=== PATIENT | female | born 1975 | race Caucasian/White ===

== ENCOUNTER 2017-05-06 17:18 | Outpatient (CLI) | payer MEDICAID ==
[~2017-05-06] VITALS: Ht 157.5 cm; Wt 59.1 kg
[2017-05-06] MEDS ORDERED: LACTATED RINGER'S 1,000 ML IV SCH (17:51)
[2017-05-06 17:52] VITALS: Ht 157.5 cm; Wt 59.1 kg
[2017-05-06 17:53] VITALS: BP 126/67; PULSE 100; RESP 20
[2017-05-06 17:57] LABS: ADD SCAN DIFF NO
[2017-05-06 17:59] LABS: BASOPHIL # 0.1 10^3/ul (0.0-0.1); BASOPHILS % 0.4 % (0.0-2.0); EOSINOPHILS # 0.1 10^3/ul (0.0-0.5); EOSINOPHILS % 0.8 % (0.0-7.0); HEMATOCRIT 31.8 % (37.0-47.0); HEMOGLOBIN 10.1 g/dl (12.0-16.0); LYMPHOCYTES # 1.7 10^3/ul (0.8-2.9); MEAN CORPUSCULAR HEMOGLOBIN 25.2 pg (29.0-33.0); MEAN CORPUSCULAR HGB CONC 31.8 g/dl (32.0-37.0); MEAN CORPUSCULAR VOLUME 79.3 fl (82.0-101.0); MEAN PLATELET VOLUME 10.9 fl (7.4-10.4); MONOCYTE # 0.7 10^3/ul (0.3-0.9); MONOCYTES % 5.1 % (0.0-11.0); NEUTROPHIL # 11.4 10^3/ul (1.6-7.5); NEUTROPHILS % 80.4 % (39.0-77.0); PLATELET COUNT 289 10^3/UL (140-415); RED BLOOD COUNT 4.01 10^6/ul (4.20-5.40); RED CELL DISTRIBUTION WIDTH 13.8 % (11.5-14.5); WHITE BLOOD COUNT 14.2 10^3/ul (4.8-10.8)
[2017-05-06 18:02] LABS: ADD UMIC NO; UR ASCORBIC ACID NEGATIVE (NEGATIVE); UR BILIRUBIN (Dip) NEGATIVE (NEGATIVE); UR BLOOD (Dip) NEGATIVE (NEGATIVE); UR CLARITY CLEAR (CLEAR); UR COLOR STRAW (YELLOW); UR GLUCOSE (Dip) NEGATIVE (NEGATIVE); UR KETONES (Dip) 1+ mg/dL (NEGATIVE); UR LEUKOCYTE ESTERASE (Dip) NEGATIVE Leu/ul (NEGATIVE); UR NITRITE (Dip) NEGATIVE (NEGATIVE); UR SPECIFIC GRAVITY (Dip) 1.005 (1.003-1.030); UR TOTAL PROTEIN (Dip) NEGATIVE (NEGATIVE); UR UROBILINOGEN (Dip) NEGATIVE (NEGATIVE)
[2017-05-06 18:03] LABS: INR 0.88; PARTIAL THROMBOPLASTIN TIME 23.4 Sec (25.0-35.0); PROTIME 11.9 Sec (12.2-14.2); PT RATIO 0.9
[2017-05-06 18:09] LABS: ALBUMIN 4.3 g/dl (3.3-4.9); ALBUMIN/GLOBULIN RATIO 1.43; BILIRUBIN,INDIRECT 0.1 mg/dl (0-1.1); BILIRUBIN,TOTAL 0.1 mg/dl (0.2-1.3); CREATININE 0.4 mg/dl (0.44-1.00); POTASSIUM 3.5 mmol/L (3.5-5.1); TOTAL PROTEIN 7.3 g/dl (6.1-8.1); URIC ACID 2.4 mg/dl (3.1-7.9)
[2017-05-06] MEDS ORDERED: ONDANSETRON 4 MG INJ IV STA (18:18)
--- NOTE | 2017-05-06 18:28 | RADRPT ---
PROCEDURE: US OB biophysical profile. CLINICAL INDICATION: evaluation, elevated blood pressure TECHNIQUE: Multiple sonographic images of the pelvis were obtained. The images were reviewed on a PACS workstation. COMPARISON: No prior studies are available for comparison. FINDINGS: There is a single viable intrauterine gestation. Cardiac activity is present with 143 beats per min [place]. There is a vertex presentation. The placenta is posterior and fundal in location. There is no evidence of placental abruption. There is a normal amount of amniotic fluid with an KADIE = 11.1 cm. Biophysical profile: movement 2/2 tone 2/2. breathing 2/2 KADIE 2/2 Total 06/17 RPTAT: AA . IMPRESSION: Normal biophysical profile. Physician Gabino Date Time Electronically viewed and signed by Physician Gabino on 05/06/2017 18:28 /
[2017-05-06] MEDS ORDERED: DEXTROSE 5%-LR 1,000 ML IV SCH (18:30)
--- NOTE | 2017-05-06 18:30 | RADRPT ---
PROCEDURE: Obstetrical ultrasound CLINICAL INDICATION: HYPERTENSION TECHNIQUE: Multiple sonographic images of the pelvis were obtained. The images were reviewed on a PACS workstation. COMPARISON: None FINDINGS: The cervix is not well visualized. There is a single viable intrauterine gestation. Cardiac activity is present with 152 beats per minute. There is a vertex presentation. The placenta is posterior and fundal in location. There is no evidence for an abruption or placenta previa. There is a normal amount of amniotic fluid with an KADIE = 11.1 cm. Measurements were made in order to determine age. The results are as follows (cm): BPD =8.15 HC =28.95 AC =28.02 FL =5.69 Estimated gestational age by ultrasound of approximately 31 weeks, 4 days. The estimated date of delivery by ultrasound is 07/04/2017. Estimated gestational age by LMP of approximately 30 weeks, 4 days. The estimated date of delivery by LMP is 07/11/2017. EFW = 1767 grams (68th percentile) IMPRESSION: Single viable intrauterine gestation of approximately 31 weeks, 4 days . The estimated date of delivery is 07/04/2017 . Dating by ultrasound is within 1 week of dating by LMP. Cephalic presentation. Normal KADIE. Posterior and fundal placenta without evidence of an abruption. RPTAT: EE Physician Gabino Date Time Electronically viewed and signed by Physician Gabino on 05/06/2017 18:29 /
[2017-05-06] MEDS ORDERED: PRENAT PO (18:53)
[2017-05-06] MEDS ORDERED: FERR325C PO (18:53)
--- NOTE | 2017-05-06 19:02 | CONS ---
Date/Time of Note Date/Time of Note DATE: 05/06/17 TIME: 18:53 Consultation Date/Type/Reason Admit Date/Time May 06, 2017 OB triage consult Reason for Consultation This patient is a 42 years old 5 para 4 with estimated date of confinement of July 17, 2017 which makes her 29 weeks and 5 days now She came to triage complaining of occasional blurred vision ,apparently to rule out -induced hypertension, she also is complaining of some discomfort ,constipation and abdominal pain , most likely due the iron pills that she is taking 3 times a day to treat anemia ; Her H & was adherently low . Blood type O Rh+ hepatitis B surface antigen negative HIV negative RPR negative and she is immune to rubella, chlamydia and gonorrhea both negative On general examination she is well-developed well-nourished lady . Her general vital signs basically appears to be normal Her blood pressure is 126/67, pulse rate 100, respiration 18 temperature 98,, At this time she does not have any contraction heart tone appears to be normal with good variability Laboratory Tests Test 05/06/17 17:10 White Blood Count 14.210^3/ul Red Blood Count 4.0110^6/ul Hemoglobin 10.1g/dl Hematocrit 31.8% Mean Corpuscular Volume 79.3fl Mean Corpuscular Hemoglobin 25.2pg Mean Corpuscular Hemoglobin Concent 31.8g/dl Red Cell Distribution Width 13.8% Platelet Count 34312^3/UL Mean Platelet Volume 10.9fl Neutrophils % 80.4% Lymphocytes % 12.0% Monocytes % 5.1% Eosinophils % 0.8% Basophils % 0.4% Nucleated Red Blood Cells % 0.0/100WBC Neutrophils # 11.410^3/ul Lymphocytes # 1.710^3/ul Monocytes # 0.710^3/ul Eosinophils # 0.110^3/ul Basophils # 0.110^3/ul Nucleated Red Blood Cells # 0.010^3/ul Prothrombin Time 11.9Sec Prothrombin Time Ratio 0.9 INR International Normalized Ratio 0.88 Activated Partial Thromboplast Time 23.4Sec Fibrinogen 533.0mg/dl Urine Color STRAW Urine Clarity CLEAR Urine pH 6.0 Urine Specific [place] 1.005 Urine Ketones 1+mg/dL Urine Nitrite NEGATIVEmg/dL Urine Bilirubin NEGATIVEmg/dL Urine Urobilinogen NEGATIVEmg/dL Urine Leukocyte Esterase NEGATIVELeu/ul Urine Hemoglobin NEGATIVEmg/dL Urine Glucose NEGATIVEmg/dL Urine Total Protein NEGATIVEmg/dl Sodium Level 136mmol/L Potassium Level 3.5mmol/L Chloride Level 106mmol/L Carbon Dioxide Level 23mmol/L Anion Gap 11 Blood Urea Nitrogen 4mg/dl Creatinine 0.40mg/dl Glucose Level 82mg/dl Uric Acid 2.4mg/dl Calcium Level 9.0mg/dl Total Bilirubin 0.1mg/dl Direct Bilirubin 0.00mg/dl Indirect Bilirubin 0.1mg/dl Aspartate Amino Transf (AST/SGOT) 47IU/L Alanine Aminotransferase (ALT/SGPT) 62IU/L Alkaline Phosphatase 115IU/L Total Protein 7.3g/dl Albumin 4.3g/dl Globulin 3.00g/dl Albumin/Globulin Ratio 1.43 Current Medications Medications (Trade) Dose Ordered Sig/Foster Route PRN Reason Start Time Stop Time Status Last Admin Dose Admin Lactated Ringer's 1,000 ml @ 125 mls/hr Q8H IV 05/06/17 17:51 05/06/17 18:26 125 MLS/HR Dextrose/Lactated Ringer's (D5-Lr) 1,000 ml @ 125 mls/hr Q8H IV 05/06/17 18:30 05/06/17 18:26 125 MLS/HR Ondansetron HCl (Zofran Inj) 4 mg ONCE STAT IV 05/06/17 18:18 05/06/17 18:21 DC 05/06/17 18:26 4 MG Constitutional: No chills, No diaphoresis, No disoriented, No febrile, No improved, No no complaints, No other, No poor po, No requiring IVF, No requiring O2 Eyes: No discharge, No no complaints, No other, No pain, No redness, No visual change ENT: No bleeding, No congestion, No discharge, No dysphagia, No no complaints, No other, No pain, No sore throat Respiratory: No cough, No no complaints, No other, No pain, No pleuritic pain, No shortness of breath, No sputum, No wheezing Cardiovascular: other (No palpitation), paroxysmal nocturnal dyspnea Gastrointestinal: No blood, No constipation, No decreased appetite, No diarrhea , No flatus, No nausea, No no complaints, No other, No pain, No passing stool, No vomiting Genitourinary: other (Due to lack of contraction and pelvic exam was not done) , No bleeding, No discharge, No dysuria, No flank pain, No hematuria, No no complaints Musculoskeletal: No back pain, No bone/joint pain, No neck pain, No no complaints, No other, No restricted range of motion, No swelling Skin: No bruising, No erythema, No laceration, No no complaints, No other, No pruritis, No rash, No skin lesions Neurologic: No confusion, No dizziness, No focal-weakness, No headache, No no complaints, No other, No seizure, No syncope Endocrine: other (Knee-jerk reflex are within normal limits) Lymphatic: No adenopathy, No lymphadema, No no complaints, No other, No tender nodes Psychological: No anxiety, No confusion, No depression, No nl mood/affect, No no complaints, No other, No suicidal Additional Comments On laboratory study her WBC is 14.2 hemoglobin 10.1 hematocrit 31.8 platelet count 289 basically the rest of the exam were also within normal limits. PIH examination were all normal including the liver function test electrolytes and coagulation studies On ultrasound study the report is single viable intrauterine gestation with a heartbeat of 1 43/min vertex presentation no evidence of placenta previa her amniotic fluid index reported 11.1 Biophysical profile 06/17 ,estimated weight 1767 which is 68th percentile With these positive finding patient was reassured and will be discharged home with instruction to rest at home and may reduce your oral iron tablet to 1 or 2 a day as a result she will have less of a problem of abdominal pain and constipation Both her and understand this and will follow this instruction and will be followed in the clinic end of dictation thank you Social History Smoking Status: Never smoker Exam/Review of Systems Vital Signs Vitals Vital Signs Date Time Temp Pulse Resp B/P Pulse Ox O2 Delivery O2 Flow Rate FiO2 05/06/17 17:53 98.0 100 20 126/67 95 Room Air Results Result Diagram: 05/06/17 1710 05/06/17 1710 Results 24 hrs Laboratory Tests Test 05/06/17 17:10 White Blood Count 14.2 H Red Blood Count 4.01 L Hemoglobin 10.1 L Hematocrit 31.8 L Mean Corpuscular Volume 79.3 L Mean Corpuscular Hemoglobin 25.2 L Mean Corpuscular Hemoglobin Concent 31.8 L Red Cell Distribution Width 13.8 Platelet Count 289 Mean Platelet Volume 10.9 H Neutrophils % 80.4 H Lymphocytes % 12.0 L Monocytes % 5.1 Eosinophils % 0.8 Basophils % 0.4 Nucleated Red Blood Cells % 0.0 Neutrophils # 11.4 H Lymphocytes # 1.7 Monocytes # 0.7 Eosinophils # 0.1 Basophils # 0.1 Nucleated Red Blood Cells # 0.0 Prothrombin Time 11.9 L Prothrombin Time Ratio 0.9 INR International Normalized Ratio 0.88 Activated Partial Thromboplast Time 23.4 L Fibrinogen 533.0 H Urine Color STRAW Urine Clarity CLEAR Urine pH 6.0 Urine Specific [place] 1.005 Urine Ketones 1+ H Urine Nitrite NEGATIVE Urine Bilirubin NEGATIVE Urine Urobilinogen NEGATIVE Urine Leukocyte Esterase NEGATIVE Urine Hemoglobin NEGATIVE Urine Glucose NEGATIVE Urine Total Protein NEGATIVE Sodium Level 136 Potassium Level 3.5 Chloride Level 106 Carbon Dioxide Level 23 Anion Gap 11 Blood Urea Nitrogen 4 L Creatinine 0.40 L Glucose Level 82 Uric Acid 2.4 L Calcium Level 9.0 Total Bilirubin 0.1 L Direct Bilirubin 0.00 Indirect Bilirubin 0.1 Aspartate Amino Transf (AST/SGOT) 47 H Alanine Aminotransferase (ALT/SGPT) 62 Alkaline Phosphatase 115 Total Protein 7.3 Albumin 4.3 Globulin 3.00 Albumin/Globulin Ratio 1.43 Medications Medications Current Medications Lactated Ringer's 1,000 ml @ 125 mls/hr Q8H IV Last administered on 05/06/17 18:26; Admin Dose 125 MLS/HR; Start 05/06/17 at 17:51 Dextrose/Lactated Ringer's (D5-Lr) 1,000 ml @ 125 mls/hr Q8H IV Last administered on 05/06/17 18:26; Admin Dose 125 MLS/HR; Start 05/06/17 at 18:30 KRISTIN WILLIAMSON MD May 06, 2017 19:02
--- NOTE | 2017-05-06 19:53 | TRIAGE ---
OB Triage Datetime Report Generated by CPN: 05/06/2017 19:53 Datetime: 05/06/2017 18:47 Stage of : OB Triage Labor Evaluation Frequency: 0 Monitor Mode: External Duration (sec)2399: 0 Resting Tone [place]: Relaxed Contraction Comments: PT DENIES UCS Heart Rate FHR Baseline Rate: 145 Variability: Moderate 6-25 bpm Accelerations: 15X15 Decelerations: None Category: Category I Pain Assessment Pain Scale: 0 Pain Presence: None/Denies Pain Type: N/A Pain Goal: 0 Pain Relief Measures: Comfort Measures Pain Assessment Comments: PT STATES HER DIZZINESS, AND MILLER IS RESOLVED AND SHE IS FEELING MUCH BETT ER Datetime: 05/06/2017 18:06 Time of Arrival: 05/06/2017 17:10 EGA: 29.5 Arrived By: Ambulatory Arrived From: Dr. Abraham Chief Complaint: R/O PIH, N/V Movement: Present Contractions: Denies/Absent Rupture of Membranes: Denies Vaginal Bleeding: None Vaginal Discharge: Denies Recent Sexual Intercouse: Denies Abdominal Trauma: Not Applicable Time Provider Notified: 05/06/2017 18:17 Provider Notified: DR. BRISCOE Initial Plan: bpp, nst, iv hydration Datetime: 05/06/2017 18:00 Assessment Type: Triage Maternal Assessment Level of Consciousness: Fully Conscious DTR's/Clonus: DTRs 2+; No Clonus Headache: Denies Blurred Vision: No Respiratory Effort: Unlabored; Regular Rhythm; Equal Expansion Breath Sounds, Left: Clear and Equal Breath Sounds, Right: Clear and Equal Nausea/Vomiting: Denies RUQ Epigastric Pain: Denies Lower Extremities Edema: None Degree: None Upper Extremities Edema: None Degree: None Facial Edema: None Fall Risk Assessment History of Falling: (0) No Secondary Diagnosis: (0) No Ambulatory Aid: (0) Bedrest/Nurse Assist IV Therapy: (0) No Gait: (0) Normal/Bedrest/Immobile Mental Status: (0) Oriented to Own Ability Fall Score: 0 Fall Risk Score Definition: No Risk: No action required Datetime: 05/06/2017 17:48 Labor Evaluation Frequency: IRREG Monitor Mode: External Duration (sec)2399: 30-50 Quality: Mild Pattern: Normal: <= 5 Contractions in 10 Minutes Resting Tone [place]: Relaxed Heart Rate FHR Baseline Rate: 150 Monitor Mode: External US Variability: Moderate 6-25 bpm Accelerations: 15X15 Decelerations: None Category: Category I Comments: NST REACTIVE FOR GESTATIONAL AGE
== END 2017-05-06 19:02 | disposition home or self-care (01) ==
LOC: OBT 17:18 → L-D 17:18 → OBT 19:02
PROVIDERS: ATTEND Obstetrics & Gynecology
DX: O26.893 Other specified pregnancy related conditions, third trimester (principal); Z3A.29 29 weeks gestation of pregnancy; H53.8 Other visual disturbances; K59.00 Constipation, unspecified; R10.9 Unspecified abdominal pain
CPT/HCPCS: 36415; 76815; 76818; 80053; 81003; 84560; 85025; 85384; 85610; 85730; J2405; J7120; J7121; Z7500; G0463

== ENCOUNTER 2017-06-25 22:53 | Outpatient (CLI) | payer MEDICAID ==
[~2017-06-25] VITALS: Ht 157.5 cm; Wt 63.9 kg
[~2017-06-25 22:53] MED LIST: FERR325C PO; PRENAT PO
[2017-06-26 00:05] VITALS: BP 115/73; PULSE 98; RESP 18; Ht 157.5 cm; Wt 63.9 kg
--- NOTE | 2017-06-26 02:51 | PN ---
Triage Information Date/Time June 26, 2017 Reason for visit: SROM Weeks of Gestation 38 weeks and 5 days /Para 6 para 4 Diabetes: none Hypertention: none Additional information 42-year-old with IUP at 38 weeks and 5 days with improvement care with Dr. Benavides presented with complaint of leaking of fluid. Denies any vaginal bleeding or uterine contractions or decreased movement. Objective Vital Signs Date Time Temp Pulse Resp B/P Pulse Ox O2 Delivery O2 Flow Rate FiO2 06/26/17 00:05 98.1 98 18 115/73 Heart Rate Comments Category 1 tracing Contractions: >10 Minutes Apart Exam General appearance: Alert and oriented 4. Patient does not appear to be in any acute distress. Abdomen: Soft, gravid, fundal height consistent with gestational age. Abdomen nontender no rebound tenderness no guarding Sterile speculum examination: Negative pooling, negative nitrazine, R OM test negative Cervix appears to be closed and long NST category 1 Results/Medications Results 24 hrs Laboratory Tests Test 06/26/17 00:25 Membranes Rupture NEGATIVE Imaging Results PROCEDURE: US OB biophysical profile. CLINICAL INDICATION: evaluation, elevated blood pressure TECHNIQUE: Multiple sonographic images of the pelvis were obtained. The images were reviewed on a PACS workstation. COMPARISON: No prior studies are available for comparison. FINDINGS: There is a single viable intrauterine gestation. Cardiac activity is present with 143 beats per minute. There is a vertex presentation. The placenta is posterior and fundal in location. There is no evidence of placental abruption. There is a normal amount of amniotic fluid with an KADIE = 11.1 cm. Biophysical profile: movement 2/2 tone 2/2. breathing 2/2 KADIE 2/2 Total 06/17 RPTAT: AA . IMPRESSION: Normal biophysical profile. Disposition: Discharge Assessment/Plan IUP at 38 weeks and 5 days No evidence of SROM No evidence of labor Normal amniotic fluid Likely leaking urine Patient was reassured DC home Strict labor precaution and kick count and follow-up within 24-48 hours with her OB clinic recommended. Patient verbalized understanding. SHY BUTTS MD Jun 26, 2017 02:51
--- NOTE | 2017-06-26 10:03 | RADRPT ---
PROCEDURE: Limited OB ultrasound. CLINICAL INDICATION: Leaking fluid. TECHNIQUE: Sonographic evaluation to assess the amniotic fluid volume was performed. Transabdomin al imaging of the gravid uterus was performed. COMPARISON: None. FINDINGS: Single live intrauterine is identified. heart rate is 122 beats per minute. Placenta is fundal, grade II in appearance. There is no evidence of placenta previa or abruption. Pr esentation is cephalic. Amniotic fluid index is 15.1 cm, within normal limits. IMPRESSION: KADIE = 15.1 cm RPTAT: HIKT .Jay Jay Parker MD, Date Time Electronically viewed and signed by .Jay Jay Parker MD, on 06/26/2017 01:15 .T/
--- NOTE | 2017-06-26 10:38 | TRIAGE ---
OB Triage Datetime Report Generated by CPN: 06/26/2017 06:58 Datetime: 06/26/2017 23:10 Maternal Assessment Blurred Vision: No Respiratory Effort: Unlabored; Regular Rhythm; Equal Expansion Lower Extremities Edema: None Degree: None Upper Extremities Edema: None Degree: None Facial Edema: None Fall Risk Assessment History of Falling: (0) No Secondary Diagnosis: (0) No Ambulatory Aid: (0) Bedrest/Nurse Assist IV Therapy: (0) No Gait: (0) Normal/Bedrest/Immobile Mental Status: (0) Oriented to Own Ability Fall Score: 0 Fall Risk Score Definition: No Risk: No action required Datetime: 06/26/2017 01:55 Stage of : OB Triage Datetime: 06/26/2017 01:30 Stage of : OB Triage Datetime: 06/26/2017 01:29 Stage of : OB Triage Labor Evaluation Frequency: occasional Monitor Mode: External Pattern: Normal: <= 5 Contractions in 10 Minutes Resting Tone [place]: Relaxed Heart Rate FHR Baseline Rate: 125 Monitor Mode: External US Variability: Moderate 6-25 bpm Accelerations: 15X15 Decelerations: None Category: Category I Pain Assessment Pain Scale: 0 Pain Presence: None/Denies Pain Type: N/A Pain Relief Measures: Comfort Measures Datetime: 06/26/2017 00:30 Stage of : OB Triage Labor Evaluation Frequency: occasionally Monitor Mode: External Pattern: Normal: <= 5 Contractions in 10 Minutes Resting Tone [place]: Relaxed Heart Rate FHR Baseline Rate: 140 Monitor Mode: External US Variability: Moderate 6-25 bpm Accelerations: 15X15 Decelerations: None Category: Category I Datetime: 06/25/2017 23:46 Stage of : Labor Vaginal Exam Dilatation (cms): 1.0 Effacement (%): 50 Station: -3 Exam By: Marley Vaginal Bleeding: None Cervix, Consistency: Soft Datetime: 06/25/2017 23:30 Stage of : OB Triage Labor Evaluation Frequency: x2 Monitor Mode: External Duration (sec)2399: 60-70 Pattern: Normal: <= 5 Contractions in 10 Minutes Resting Tone [place]: Relaxed Heart Rate FHR Baseline Rate: 140 Monitor Mode: External US Variability: Moderate 6-25 bpm Accelerations: 15X15 Decelerations: None Category: Category I Datetime: 06/25/2017 23:04 Time of Arrival: 06/25/2017 22:49 EGA: 38.5 Arrived By: Ambulatory Arrived From: Home Movement: Present Contractions: Denies/Absent Rupture of Membranes: Unsure Vaginal Bleeding: None Vaginal Discharge: Present Abdominal Trauma: Not Applicable Patient Complaints: None Additional Patient Complaints: LEAKING Time Provider Notified: 06/26/2017 00:10 Provider Notified: Jamardasuresh Initial Plan: VS, EFM, NOTIFY MD Datetime: 05/06/2017 18:06 EGA: 31.4 Patient Complaints: Cramping; Headache; Visual Disturbance; Nausea; Vomiting Datetime: 05/06/2017 18:00 Fall Score: 0 Fall Risk Score Definition: No Risk: No action required
== END 2017-06-26 02:05 | disposition home or self-care (01) ==
LOC: OBT 22:53 → L-D 22:56 → OBT 06-26 02:05
PROVIDERS: ATTEND Obstetrics & Gynecology
DX: O41.93X0 Disorder of amniotic fluid and membranes, unspecified, third trimester, not applicable or unspecified (principal); Z3A.38 38 weeks gestation of pregnancy; O42.92 Full-term premature rupture of membranes, unspecified as to length of time between rupture and onset of labor
CPT/HCPCS: 76815; 84112; Z7500; G0463

== ENCOUNTER 2017-07-02 22:04 | Outpatient (CLI) | payer MEDICAID ==
[~2017-07-02] VITALS: Ht 158.8 cm; Wt 65.6 kg
[2017-07-02 23:11] VITALS: BP 115/72; PULSE 90; RESP 18
[2017-07-03 00:11] LABS: ADD UMIC YES; UR ASCORBIC ACID NEGATIVE (NEGATIVE); UR BACTERIA FEW /HPF (NONE SEEN); UR BILIRUBIN (Dip) NEGATIVE (NEGATIVE); UR BLOOD (Dip) NEGATIVE (NEGATIVE); UR CLARITY CLEAR (CLEAR); UR COLOR YELLOW (YELLOW); UR GLUCOSE (Dip) NEGATIVE (NEGATIVE); UR KETONES (Dip) TRACE mg/dL (NEGATIVE); UR LEUKOCYTE ESTERASE (Dip) 1+ Leu/ul (NEGATIVE); UR NITRITE (Dip) NEGATIVE (NEGATIVE); UR RBC 1 /HPF (0-5); UR SPECIFIC GRAVITY (Dip) 1.009 (1.003-1.030); UR SQUAMOUS EPITHELIAL CELL FEW /HPF (FEW); UR TOTAL PROTEIN (Dip) NEGATIVE (NEGATIVE); UR UROBILINOGEN (Dip) NEGATIVE (NEGATIVE)
--- NOTE | 2017-07-03 00:24 | RADRPT ---
PROCEDURE: OB ultrasound for biophysical profile CLINICAL INDICATION: 42 years of age, female. Decreased movements TECHNIQUE: Multiple sonographic images of the pelvis were obtained. Transabdominal view of the gr avid uterus are available for review. The images were reviewed on a PACS workstation. COMPARISON: None available. FINDINGS: breathing movement = 2/2 tone = 2/2 motion = 2/2 Amniotic fluid = 2/2 KADIE = 13.7 cm Single live intrauterine in cephalic presentation. heart rate measures 150 bpm. Fundal placenta, grade 2. There are multiple echogenic cystic lesions in the placenta. Placenta janie sures 4.3 cm in thickness. IMPRESSION: 1. Single living fetus in cephalic presentation. 2. Biophysical profile = 8/8. 3. Normal amniotic fluid volume. KADIE = 13.7 cm. 4. Mature grade 2 placenta with multiple echogenic cystic lesions that may be seen with ischemic pl acental disease. RPTAT: HCTS Physician Shahida Date Time Electronically viewed and signed by Physician Shahida on 07/03/2017 00:24 CS/
--- NOTE | 2017-07-03 00:26 | RADRPT ---
PROCEDURE: ULTRASOUND OF THE BILATERAL LOWER EXTREMITY VENOUS SYSTEMS WITH DOPPLER CLINICAL INDICATION: 42 years of age, female. Pain and swelling . COMPARISON: None available. TECHNIQUE: Real-time longitudinal and transverse sonographic humphries scale imaging with and without com pression, as well as color and duplex Doppler imaging before and after augmentation, was obtained of the deep system of the bilateral lower extremities, including the common femoral, femoral, poplitea l, posterior tibial, and peroneal veins. FINDINGS: Right common femoral vein: No evidence of thrombus. Right femoral vein: No evidence of thrombus. Right popliteal vein: No evidence of thrombus. Right calf veins: Patent where visualized. Left common femoral vein: No evidence of thrombus. Left femoral vein: No evidence of thrombus. Left popliteal vein: No evidence of thrombus. Left calf veins: Patent where visualized. Additional comment: None. IMPRESSION: Negative for ultrasound evidence of deep venous thrombosis in the right or left lower extremity. RPTAT: HCTS Physician Shahida Date Time Electronically viewed and signed by Physician Shahida on 07/03/2017 00:25 /
--- NOTE | 2017-07-03 05:34 | PN ---
Triage Information Date/Time July 02, 2017 Reason for visit: Both leg swelling more in the right side. Decreased movement as well. Weeks of Gestation 37 weeks and 6 days /Para 6 para Diabetes: none Hypertention: none Additional information 42-year-old with IUP at 37 weeks and 6 days with complaint of both lower extremity swelling more in the right and left. Denies any vaginal bleeding, uterine contractions. Complaint of decreased movement as well. Objective Vital Signs Date Time Temp Pulse Resp B/P Pulse Ox O2 Delivery O2 Flow Rate FiO2 07/02/17 23:11 98.4 90 18 115/72 Room Air Heart Rate: 130's Contractions: >10 Minutes Apart Exam General appearance: Alert and oriented 4. Patient does not appear to be in any acute distress. Abdomen: Soft, gravid, fundal height consistent with gestational age. Extremities: Calf tenderness in the right side. No cords palpable, 2+ edema nonpitting in the right side. 1+ edema nonpitting the left side. No calf tenderness in the left side. No cords palpable in any site. Negative Homans sign in both sides. NST: Category 1 BPP: 06/17 Results/Medications Results 24 hrs Laboratory Tests Test 07/02/17 23:00 Urine Color YELLOW Urine Clarity CLEAR Urine pH 6.0 Urine Specific [place] 1.009 Urine Ketones TRACE A Urine Nitrite NEGATIVE Urine Bilirubin NEGATIVE Urine Urobilinogen NEGATIVE Urine Leukocyte Esterase 1+ H Urine Microscopic RBC 1 Urine Microscopic WBC 3 Urine Squamous Epithelial Cells FEW Urine Bacteria FEW A Urine Hemoglobin NEGATIVE Urine Glucose NEGATIVE Urine Total Protein NEGATIVE Imaging Results PROCEDURE: ULTRASOUND OF THE BILATERAL LOWER EXTREMITY VENOUS SYSTEMS WITH DOPPLER CLINICAL INDICATION: 42 years of age, female. Pain and swelling . COMPARISON: None available. TECHNIQUE: Real-time longitudinal and transverse sonographic humphries scale imaging with and without compression, as well as color and duplex Doppler imaging before and after augmentation, was obtained of the deep system of the bilateral lower extremities, including the common femoral, femoral, popliteal, posterior tibial, and peroneal veins. FINDINGS: Right common femoral vein: No evidence of thrombus. Right femoral vein: No evidence of thrombus. Right popliteal vein: No evidence of thrombus. Right calf veins: Patent where visualized. Left common femoral vein: No evidence of thrombus. Left femoral vein: No evidence of thrombus. Left popliteal vein: No evidence of thrombus. Left calf veins: Patent where visualized. Additional comment: None. IMPRESSION: Negative for ultrasound evidence of deep venous thrombosis in the right or left lower extremity. Disposition: Discharge Assessment/Plan IUP at 37 weeks and 6 days Swelling of Both lower extremity. no evidence of DVT in ultrasound Incidental finding of multiple cystic area in the placenta. ? for placental infarction. BPP reassuring and NST DC home Follow up tomorrow to Triage for possible admission for induction after consultation with perinatologist CAITLIN Crane was notified to contact the patient to come tomorrow for possible induction Labor precaution and kick counts discussed Patient verbalized understanding SHY BUTTS MD Jul 03, 2017 05:26
--- NOTE | 2017-07-03 07:34 | TRIAGE ---
OB Triage Datetime Report Generated by CPN: 07/03/2017 07:34 Datetime: 07/03/2017 01:28 Stage of : OB Triage Labor Evaluation Frequency: IRREG Monitor Mode: External Duration (sec)2399: 40-80 Quality: Mild Pattern: Normal: <= 5 Contractions in 10 Minutes Resting Tone [place]: Relaxed Heart Rate FHR Baseline Rate: 145 Monitor Mode: External US Variability: Moderate 6-25 bpm Accelerations: 15X15 Decelerations: Variable Category: Category II Datetime: 07/03/2017 01:27 Stage of : OB Triage Datetime: 07/03/2017 00:50 Stage of : OB Triage Labor Evaluation Frequency: IRREG Monitor Mode: External Duration (sec)2399: 40-80 Quality: Mild Pattern: Normal: <= 5 Contractions in 10 Minutes Resting Tone [place]: Relaxed Heart Rate FHR Baseline Rate: 145 Monitor Mode: External US Variability: Moderate 6-25 bpm Accelerations: 15X15 Decelerations: Variable (Annotations: MILD) Category: Category I Datetime: 07/03/2017 00:05 Stage of : OB Triage Pattern: Normal: <= 5 Contractions in 10 Minutes Resting Tone [place]: Relaxed Heart Rate FHR Baseline Rate: 150 Monitor Mode: External US FHR Baseline Changes: No Baseline Change Variability: Moderate 6-25 bpm Accelerations: 15X15 Decelerations: Variable Category: Category II Datetime: 07/03/2017 00:00 Stage of : OB Triage Labor Evaluation Frequency: IRREG Monitor Mode: External Duration (sec)2399: 40-80 Quality: Mild Pattern: Normal: <= 5 Contractions in 10 Minutes Resting Tone [place]: Relaxed Heart Rate FHR Baseline Rate: 140 Monitor Mode: External US Variability: Moderate 6-25 bpm Accelerations: 15X15 Decelerations: None Category: Category I Datetime: 07/02/2017 23:00 Stage of : OB Triage Temperature Route: Oral Labor Evaluation Frequency: X1 Monitor Mode: External Duration (sec)2399: 80 Quality: Mild Pattern: Normal: <= 5 Contractions in 10 Minutes Resting Tone [place]: Relaxed Heart Rate FHR Baseline Rate: 150 Monitor Mode: External US Variability: Moderate 6-25 bpm Accelerations: 15X15 Decelerations: Variable (Annotations: MILD) Category: Category II Datetime: 07/02/2017 22:30 Time of Arrival: 07/02/2017 21:52 EGA: 37.6 Arrived By: Ambulatory Arrived From: Home Chief Complaint: sent from clinic d/t pedal edema and inc edema and pain rt leg Movement: Decreased Contractions: Irregular Rupture of Membranes: Denies Vaginal Bleeding: None Vaginal Discharge: Denies Recent Sexual Intercouse: Denies Abdominal Trauma: Not Applicable Patient Complaints: Cramping; Dependent Edema Time Provider Notified: 07/02/2017 22:55 Provider Notified: Dr Espino Initial Plan: EFM, SVE, BPP, venous doppler taylor lower ext Datetime: 07/02/2017 22:29 Stage of : OB Triage Maternal Assessment Level of Consciousness: Fully Conscious DTR's/Clonus: DTRs 2+; No Clonus Headache: Denies Blurred Vision: No Respiratory Effort: Unlabored Nausea/Vomiting: Denies RUQ Epigastric Pain: Denies Facial Edema: None Labor Evaluation Frequency: placed Monitor Mode: External Resting Tone [place]: Relaxed Heart Rate FHR Baseline Rate: 150 Monitor Mode: External US Pain Assessment Pain Scale: 8 Pain Presence: Constant Pain Type: Pressure Pain Location: Right Leg; Right Ankle Datetime: 06/26/2017 23:10 Fall Risk Assessment Fall Score: 0 Fall Risk Score Definition: No Risk: No action required Datetime: 06/25/2017 23:04 EGA: 36.6 Datetime: 05/06/2017 18:06 EGA: 29.5 Datetime: 05/06/2017 18:00 Fall Risk Assessment Fall Score: 0 Fall Risk Score Definition: No Risk: No action required
== END 2017-07-03 00:38 | disposition home or self-care (01) ==
LOC: OBT 22:04 → L-D 22:04 → OBT 07-03 00:38
PROVIDERS: ATTEND Obstetrics & Gynecology
DX: O36.8130 Decreased fetal movements, third trimester, not applicable or unspecified (principal); O26.893 Other specified pregnancy related conditions, third trimester; R22.43 Localized swelling, mass and lump, lower limb, bilateral; Z3A.37 37 weeks gestation of pregnancy
CPT/HCPCS: 76818; 81001; 93970; Z7500; G0463

== ENCOUNTER 2017-07-03 11:46 | Outpatient (CLI) | payer MEDICAID ==
[~2017-07-03] VITALS: Ht 160 cm; Wt 65.6 kg
[2017-07-03 11:50] VITALS: Ht 160 cm; Wt 65.6 kg
[2017-07-03 11:51] VITALS: BP 110/70
--- NOTE | 2017-07-03 13:53 | RADRPT ---
AMENDMENT: 07/03/2017 3:29:38 PM Manoj Hou MD CORRECTION: The estimated weight is 3584 g which is in the 65th percentile. PROCEDURE: Obstetrical ultrasound CLINICAL INDICATION: Intrauterine growth retardation TECHNIQUE: Multiple sonographic images of the pelvis were obtained. The images were reviewed on a PACS workstation. COMPARISON: None FINDINGS: The cervix is not well visualized. There is a single viable intrauterine gestation. Cardiac activity is present with 129 beats per minute. There is a vertex presentation. The placenta is fundal. There is no evidence for an abruption or placenta previa. There is a subjectively normal amount of amniotic fluid. Measurements were made in order to determine age. The results are as follows (cm): BPD =9.34 HC =33.86 AC =35.55 FL =7.29 Estimated gestational age by ultrasound of approximately 38 weeks, 3 days. The estimated date of delivery by ultrasound is 07/14/2017. Estimated gestational age by LMP of approximately 38 weeks, 6 days. The estimated date of delivery by LMP is 07/11/2017. EFW = 1584 grams (65th percentile) IMPRESSION: Single viable intrauterine gestation of approximately 38 weeks, 3 days . The estimated date of delivery is 07/14/2017 . Dating by ultrasound is within 3 days of dating by LMP. Cephalic presentation. Estimated weight is 1584 g which is in the 65th percentile. RPTAT: EE Physician Gabino Date Time Electronically viewed and signed by Physician Gabino on 07/03/2017 15:29 /
--- NOTE | 2017-07-03 15:16 | PN ---
Triage Information Date/Time 07/03/2017 Reason for visit: called in for palcental conditions at 38 weeks Weeks of Gestation 38 /Para G6 P 4 Diabetes: none Hypertention: none Additional information seen in Ob Triage night before: notice to have placental condition: Perinatologist read U/S as placental lakes : and recommends delivery at 39 weeks and biweekly NST and BPP Objective Vital Signs Date Time Temp Pulse Resp B/P Pulse Ox O2 Delivery O2 Flow Rate FiO2 07/03/17 11:51 98.0 110/70 Heart Rate: 140's Heart Rate Comments reactive Contractions: None Exam no applicable Results/Medications Imaging Results EFW = 3584 grams (65th percentile) IMPRESSION: Single viable intrauterine gestation of approximately 38 weeks, 3 days . The estimated date of delivery is 07/14/2017 . Dating by ultrasound is within 3 days of dating by LMP. Disposition: Discharge Assessment/Plan placental lakes will follow by antepartum testing and in clinic AMY LEACH MD Jul 03, 2017 15:16
--- NOTE | 2017-07-03 15:34 | TRIAGE ---
OB Triage Datetime Report Generated by CPN: 07/03/2017 15:34 Datetime: 07/03/2017 11:55 Stage of : OB Triage Assessment Type: Triage Level of Consciousness: Fully Conscious DTR's/Clonus: DTRs 2+; No Clonus Headache: Denies Blurred Vision: No Respiratory Effort: Unlabored; Regular Rhythm; Equal Expansion Breath Sounds, Left: Clear and Equal Breath Sounds, Right: Clear and Equal Nausea/Vomiting: Denies RUQ Epigastric Pain: Denies Lower Extremities Edema: Bilateral Lower Extremities Degree: Pitting Upper Extremities Edema: None Degree: None Facial Edema: None Temperature Route: Oral History of Falling: (0) No Secondary Diagnosis: (0) No Ambulatory Aid: (0) Bedrest/Nurse Assist IV Therapy: (0) No Gait: (0) Normal/Bedrest/Immobile Mental Status: (0) Oriented to Own Ability Fall Score: 0 Fall Risk Score Definition: No Risk: No action required Monitor Mode: External Resting Tone [place]: Relaxed FHR Baseline Rate: 130 Monitor Mode: External US Variability: Moderate 6-25 bpm Accelerations: 15X15 Decelerations: None Category: Category I Pain Scale: 0 Pain Presence: None/Denies Pain Type: N/A Datetime: 07/03/2017 11:54 Time of Arrival: 07/03/2017 11:41 EGA: 38.0 Arrived By: Ambulatory Arrived From: Home Time Provider Notified: 07/03/2017 15:17 Provider Notified: DR. BRISCOE
== END 2017-07-03 15:38 | disposition home or self-care (01) ==
LOC: L-D 11:46 → OBT 11:46 → L-D 11:49 → OBT 15:38
PROVIDERS: ATTEND Obstetrics & Gynecology
DX: O36.5930 Maternal care for other known or suspected poor fetal growth, third trimester, not applicable or unspecified (principal); Z3A.38 38 weeks gestation of pregnancy
CPT/HCPCS: 76815

== ENCOUNTER 2017-07-09 14:38 | Inpatient (IN) | payer MEDICAID ==
[~2017-07-09] VITALS: Ht 160 cm; Wt 64.8 kg
[2017-07-09 15:56] VITALS: Ht 160 cm; Wt 64.8 kg
--- NOTE | 2017-07-09 16:03 | TRIAGE ---
OB Triage Datetime Report Generated by CPN: 07/09/2017 16:03 Datetime: 07/09/2017 16:01 Time of Arrival: 07/09/2017 14:30 EGA: 38.6 Arrived By: Ambulatory Arrived From: Home Chief Complaint: UC Movement: Present Contractions: Occasional Rupture of Membranes: Unsure Vaginal Discharge: Denies Recent Sexual Intercouse: Denies Abdominal Trauma: Not Applicable Patient Complaints: Contractions Time Provider Notified: 07/09/2017 15:37 Provider Notified: Srinivas Initial Plan: NST, VE Datetime: 07/09/2017 15:40 Vaginal Exam Dilatation (cms): 3.0 Effacement (%): 90 Station: -2 Exam By: Madisyn RN Datetime: 07/03/2017 11:55 Fall Risk Assessment Fall Score: 0 Fall Risk Score Definition: No Risk: No action required Datetime: 07/03/2017 11:54 EGA: 38.0 Datetime: 07/02/2017 22:30 EGA: 37.6 Datetime: 06/26/2017 23:10 Fall Risk Assessment Fall Score: 0 Fall Risk Score Definition: No Risk: No action required Datetime: 06/25/2017 23:04 EGA: 36.6 Datetime: 05/06/2017 18:06 EGA: 29.5 Datetime: 05/06/2017 18:00 Fall Risk Assessment Fall Score: 0 Fall Risk Score Definition: No Risk: No action required
[2017-07-09] MEDS ORDERED: LACTATED RINGER'S 1,000 ML IV SCH (16:21)
[2017-07-09] MEDS ORDERED: LACTATED RINGER'S 1,000 ML IV PRN (16:21)
[2017-07-09] MEDS ORDERED: MINERAL OIL LIGHT 10 ML VIAL TOP PRN (16:30)
[2017-07-09] MEDS ORDERED: OXYTOCIN 30 UNITS/LR 500 ML IV PRN ×2 (16:30→23:30)
[2017-07-09] MEDS ORDERED: CARBOPROST 250 MCG INJ IM PRN ×2 (16:30→23:30)
[2017-07-09] MEDS ORDERED: METHYLERGONOVINE 0.2 MG INJ IM PRN ×2 (16:30→23:30)
[2017-07-09] MEDS ORDERED: MISOPROSTOL 200 MCG TAB PR PRN ×2 (16:30→23:30)
[2017-07-09] MEDS ORDERED: IBUPROFEN 600 MG TAB PO PRN (16:30)
[2017-07-09] MEDS ORDERED: LIDOCAINE 1% (MPF) 30 ML INJ INJ PRN (16:30)
[2017-07-09] MEDS ORDERED: OXYTOCIN 30 UNITS/LR 500 ML IV SCH ×3 (16:30→18:30)
[2017-07-09] MEDS ORDERED: BUTORPHANOL 2 MG INJ IV PRN (16:30)
[2017-07-09 17:12] LABS: BASOPHILS % 0.3 % (0.0-2.0); EOSINOPHILS % 0.4 % (0.0-7.0); HEMATOCRIT 31.8 % (37.0-47.0); HEMOGLOBIN 9.8 g/dl (12.0-16.0); LYMPHOCYTES # 1.4 10^3/ul (0.8-2.9); LYMPHOCYTES % 13.2 % (15.0-51.0); MEAN CORPUSCULAR HEMOGLOBIN 22.6 pg (29.0-33.0); MEAN CORPUSCULAR HGB CONC 30.8 g/dl (32.0-37.0); MEAN CORPUSCULAR VOLUME 73.4 fl (82.0-101.0); MEAN PLATELET VOLUME 10.8 fl (7.4-10.4); MONOCYTE # 0.7 10^3/ul (0.3-0.9); MONOCYTES % 7.1 % (0.0-11.0); NEUTROPHILS % 78.5 % (39.0-77.0); PLATELET COUNT 239 10^3/UL (140-415); RED BLOOD COUNT 4.33 10^6/ul (4.20-5.40); RED CELL DISTRIBUTION WIDTH 17.9 % (11.5-14.5); WHITE BLOOD COUNT 10.3 10^3/ul (4.8-10.8)
[2017-07-09 17:28] LABS: INR 0.86; PROTIME 11.7 Sec (12.2-14.2); PT RATIO 0.9
[2017-07-09 17:29] LABS: PARTIAL THROMBOPLASTIN TIME 24.1 Sec (25.0-35.0)
[2017-07-09] MEDS ORDERED: LACTATED RINGER'S 1,000 ML IV ONE (19:35)
[2017-07-09] MEDS ORDERED: ONDANSETRON 4 MG INJ ONE (19:38)
[2017-07-09] MEDS ORDERED: CITRIC ACID/NA CITRATE 30 ML CUP ONE (19:38)
[2017-07-09] MEDS ORDERED: FENTAnyl 2MCG/ML-ROPIV 0.2% 100 ML ONE (19:38)
[2017-07-09] MEDS ORDERED: TRIMETHOBENZAMIDE 100 MG/ML VIAL IM PRN (20:00)
[2017-07-09] MEDS ORDERED: KETOROLAC 30 MG INJ IV PRN (20:00)
[2017-07-09] MEDS ORDERED: morphine 2 MG INJ IV PRN (20:00)
[2017-07-09] MEDS ORDERED: ONDANSETRON 4 MG INJ IV ONE (20:00)
[2017-07-09] MEDS ORDERED: ONDANSETRON 4 MG INJ IV PRN (20:00)
[2017-07-09] MEDS ORDERED: FENTAnyl 2MCG/ML-ROPIV 0.2% 100 ML BAG EPI SCH (20:00)
[2017-07-09] MEDS ORDERED: NALOXONE (0.4 MG/ML) INJ IV PRN (20:00)
[2017-07-09] MEDS ORDERED: DIPHENHYDRAMINE 50 MG INJ IV PRN (20:00)
[2017-07-09] MEDS ORDERED: morphine 4 MG/ML VIAL IV PRN (20:00)
[2017-07-09] MEDS ORDERED: CITRIC ACID/NA CITRATE 30 ML CUP PO ONE (20:00)
[2017-07-09] MEDS ORDERED: NALBUPHINE HCL (10 MG/1 ML) INJ IV PRN (20:00)
--- NOTE | 2017-07-09 21:22 | LDN ---
Date/Time of Note Date/Time of Note DATE: 07/09/17 TIME: 21:20 Delivery Summary Normal spontaneous vaginal delivery of a viable over intact perineum Weeks of Gestation 38+ Placenta Delivered: Spontaneously, Intact & Complete Meconium: none Episiotomy: No Perineal laceration: 0 Anesthesia type: Epidural Estimated blood loss: 300 Sponge & Needle done & correct: Yes All needle counts correct: Yes Any foreign bodies felt in the: No Problems: Infant Delivery Information Sex Sex: male Apgars 1 Minute: 8 5 Minute: 9 Suctioning Nose & mouth suctioned at kelli: Yes Umbilical Cord Cord presentations: no nuchal cord Cord Blood was obtained: Yes Mother & Baby Disposition Disposition Mom & Baby to Maternity; Good: Yes (Mother and baby were recovered in good condition) Mom transferred to: Other (Maternity) Baby to NICU: No AMY LEACH MD Jul 09, 2017 21:22
--- NOTE | 2017-07-09 21:29 | HP ---
Date/Time of Note Date/Time of Note DATE: 07/09/17 TIME: 21:22 OB - History Hx of Present Free Text/Dictation Admitted in labor at term started a few hours prior to admission Chief Complaint: Liver pains Last Menstrual Period: Oct 10, 2016 Estimated Due Date: Jul 18, 2017 : 5 Para: 4 Care: Good Care Ultrasounds: Normal mid trimester US Obstetrical Complications: None Medical Complications: None Past Family/Social History * Past Medical, Surgical, Family and Obstetric Histories reviewed from chart. Blood Type: O+ Rubella: immune RPR/VDRL: Negative GBS Status: Negative HBsAG: Negative OB Admission Exam Physical Exam HEENT: WNL Heart: Rhythm Normal Lungs: Clear, Equal Abdomen: WNL Extremities: Normal Reflexes: Normal Cervical Dilatation: 4cm Effacement: 100% Station: -2 Membranes: Intact Heart Rate: 130's Accelerations: Accelerations Present Decelerations: Early Decelerations Varibility: Marked Contractions on Admission: < 5 Minutes Apart Date/Time Contractions Began: 06/26/2017 Frequency of Contractions: q 3-4min Duration: >60 seconds Intensity: Moderate Last 72 hours Lab Results CBC & BMP 07/09/17 16:30 OB Assessment/Plan Other Assessment: Term gestation Plan: Expectant Management Other plan: Seated with a spontaneous labor AMY LEACH MD Jul 09, 2017 21:29
[2017-07-09] MEDS ORDERED: CEFAZOLIN 2 GM/50 ML (PMX) 50 ML IVPB ONE (22:00)
[2017-07-09] MEDS ORDERED: CEFAZOLIN 2 GM/50 ML (PMX) 50 ML IVPB SCH (22:17)
[2017-07-09] MEDS ORDERED: BENZOCAINE 20% 56 ML SPRAY TOP PRN (23:30)
[2017-07-09] MEDS ORDERED: HYDROCODONE/APAP (5/325) TAB PO PRN ×2 (23:30)
[2017-07-09] MEDS ORDERED: WITCH HAZEL/GLYCERIN PAD PR PRN (23:30)
[2017-07-09] MEDS ORDERED: LANOLIN 7 GM TUBE TOP PRN (23:30)
[2017-07-09] MEDS ORDERED: DIBUCAINE 1% 30 GM OINT PR PRN (23:30)
[2017-07-09] MEDS ORDERED: ZOLPIDEM 5 MG TAB PO PRN (23:30)
[2017-07-10] VITALS: BP 127/59; PULSE 92; RESP 18
[2017-07-10] MEDS: CEPHALEXIN 500 MG CAP PO SCH ×5 (00:13→23:47)
[2017-07-10] MEDS: IBUPROFEN 600 MG TAB PO SCH ×5 (00:13→23:47)
[2017-07-10] MEDS: LACTATED RINGER'S 1,000 ML IV* SCH ×3 (02:09→16:49)
[2017-07-10 04:00] VITALS: BP 104/56; PULSE 70; RESP 17
[2017-07-10 08:45] VITALS: BP 105/55; PULSE 76; RESP 18
[2017-07-10] MEDS: SENNA/DOCUSATE NA (8.6MG/50MG) TAB PO SCH ×2 (09:04→21:42)
[2017-07-10] MEDS: MAGNESIUM HYDROXIDE 30ML CUP PO SCH ×2 (09:04→21:42)
[2017-07-10 10:49] LABS: BASOPHILS % 0.2 % (0.0-2.0); EOSINOPHILS % 0.1 % (0.0-7.0); HEMATOCRIT 29.4 % (37.0-47.0); HEMOGLOBIN 9.2 g/dl (12.0-16.0); LYMPHOCYTES # 1.4 10^3/ul (0.8-2.9); MEAN CORPUSCULAR HEMOGLOBIN 23.6 pg (29.0-33.0); MEAN CORPUSCULAR HGB CONC 31.3 g/dl (32.0-37.0); MEAN CORPUSCULAR VOLUME 75.4 fl (82.0-101.0); MEAN PLATELET VOLUME 11.4 fl (7.4-10.4); MONOCYTE # 0.8 10^3/ul (0.3-0.9); MONOCYTES % 5.9 % (0.0-11.0); NEUTROPHILS % 83.3 % (39.0-77.0); PLATELET COUNT 216 10^3/UL (140-415); RED CELL DISTRIBUTION WIDTH 17.7 % (11.5-14.5); WHITE BLOOD COUNT 13.8 10^3/ul (4.8-10.8)
--- NOTE | 2017-07-10 13:53 | DS ---
Date/Time of Note Date/Time of Note Home next day DATE: 07/10/17 TIME: 13:50 Obstetrical Discharge Record Final Diagnosis Final Diagnosis: Term delivered Other Final Diagnosis S/P vaginal delivery Vaginal Delivery Obstetrical Delivery: Spontaneous Complications Augmentation: No Induction: No Condition on Discharge Physical Assessment Last Vitals: see nurses notes Voiding: Yes Bowel Movement: Yes Breast: Soft, non-tender, Filling Fundus: Firm Abdomen and Incision: soft BS + Episiotomy: NA Calf Tenderness: No Patient Condition: Good AMY LEACH MD Jul 10, 2017 13:53
[2017-07-10] MEDS ORDERED: IBUP-1542 PO ×2 (13:54→18:26)
--- NOTE | 2017-07-10 13:54 | PD.PPDC ---
[facility] Discharge Instruction Provider Information Physician Information 42-year-old female presented herself in active labor and had vaginal delivery Diagnosis Final Diagnosis: Status post vaginal delivery Condition Patient Condition: Good Diet Diet: Resume Regular Diet Activity/Restrictions Activity: Normal Activity May Shower Restrictions: Nothing in the Vagina Return to Work or School: Aug 25, 2017 Follow-up Follow-up with Physician: 4, Week/Weeks (In clinic) Return to clinic for OB Instructions: Breast Tenderness Depression Comment: Pelvic rest 6 weeks AMY LEACH MD Jul 10, 2017 13:54
[2017-07-10 16:25] VITALS: BP 105/55; PULSE 76; RESP 18
[2017-07-10 19:50] VITALS: BP 107/70; PULSE 74; RESP 18
[2017-07-11 04:00] VITALS: BP 100/59; PULSE 64; RESP 17
[2017-07-11] MEDS: IBUPROFEN 600 MG TAB PO SCH ×2 (05:36→12:18)
[2017-07-11] MEDS: CEPHALEXIN 500 MG CAP PO SCH ×2 (05:36→12:18)
[2017-07-11] MEDS: MAGNESIUM HYDROXIDE 30ML CUP PO SCH (08:29)
[2017-07-11] MEDS: SENNA/DOCUSATE NA (8.6MG/50MG) TAB PO SCH (08:30)
[2017-07-11 08:45] VITALS: BP 105/62; RESP 18
[2017-07-11] MEDS ORDERED: MEASLES,MUMPS,RUBELLA VACCINE INJ SC* ONE (09:00)
[2017-07-11] MEDS ORDERED: DIPHTH/TET/ACEL PERTUSS (ADULT) 0.5 ML VIAL IM* ONE (09:00)
[2017-07-11] MEDS ORDERED: VARICELLA VACCINE LIVE/PF 1,350 UNIT/0.5 ML ML SC* ONE (09:00)
[2017-07-11 09:12] LABS: BASOPHIL # 0.1 10^3/ul (0.0-0.1); BASOPHILS % 0.6 % (0.0-2.0); EOSINOPHILS # 0.1 10^3/ul (0.0-0.5); EOSINOPHILS % 1.5 % (0.0-7.0); HEMATOCRIT 28.3 % (37.0-47.0); HEMOGLOBIN 8.6 g/dl (12.0-16.0); LYMPHOCYTES # 1.6 10^3/ul (0.8-2.9); LYMPHOCYTES % 19.1 % (15.0-51.0); MEAN CORPUSCULAR HEMOGLOBIN 23.4 pg (29.0-33.0); MEAN CORPUSCULAR HGB CONC 30.4 g/dl (32.0-37.0); MEAN CORPUSCULAR VOLUME 76.9 fl (82.0-101.0); MEAN PLATELET VOLUME 11.8 fl (7.4-10.4); MONOCYTE # 0.5 10^3/ul (0.3-0.9); NEUTROPHILS % 72.2 % (39.0-77.0); PLATELET COUNT 226 10^3/UL (140-415); RED BLOOD COUNT 3.68 10^6/ul (4.20-5.40); WHITE BLOOD COUNT 8.1 10^3/ul (4.8-10.8)
== END 2017-07-11 16:56 | disposition home or self-care (01) | DRG 775 ==
LOC: OBT 14:38 → L-D 14:45 → OBT 15:41 → L-D 15:41 → PP1 23:18
PROVIDERS: ADMIT Obstetrics & Gynecology; ATTEND Obstetrics & Gynecology
PROC: 10E0XZZ Delivery of Products of Conception, External Approach (ICD-10-PCS; principal; 2017-07-09)
DX: O76 Abnormality in fetal heart rate and rhythm complicating labor and delivery (principal); Z37.0 Single live birth; Z3A.38 38 weeks gestation of pregnancy
CPT/HCPCS: 62319; 85025; 85610; 85730; 86592; 86900; 86901; 87340; 90715; 90716; 99464; G0463; J0595; J0690; J2405; J2590; J3010; J7120